=== PATIENT | male | born 1965 | race Caucasian/White ===

== ENCOUNTER 2018-11-26 17:28 | Emergency (ER) | payer MEDICAID ==
[~2018-11-26] VITALS: Ht 177.8 cm; Wt 74.8 kg
[2018-11-26 17:42] VITALS: BP 142/98
== END 2018-11-26 18:19 | disposition home or self-care (01) ==
LOC: ER 17:32
DX: K02.9 Dental caries, unspecified (principal); F17.210 Nicotine dependence, cigarettes, uncomplicated; F12.90 Cannabis use, unspecified, uncomplicated; Z88.5 Allergy status to narcotic agent; Z88.0 Allergy status to penicillin

== ENCOUNTER 2020-12-22 15:57 | Emergency (ER) | payer MEDICAID, OTHER ==
[~2020-12-22] VITALS: Ht 177.8 cm; Wt 86.2 kg
[2020-12-22 16:31] VITALS: BP 132/84
[2020-12-22] MEDS ORDERED: IBUPROFEN 800 MG TAB PO ONE (16:45)
== END 2020-12-22 17:18 | disposition home or self-care (01) ==
LOC: ER 15:57
DX: S52.502A Unspecified fracture of the lower end of left radius, initial encounter for closed fracture (principal); F17.210 Nicotine dependence, cigarettes, uncomplicated; Z88.0 Allergy status to penicillin; Z88.5 Allergy status to narcotic agent; W18.39XA Other fall on same level, initial encounter; Y93.89 Activity, other specified; Y92.89 Other specified places as the place of occurrence of the external cause; Y99.8 Other external cause status
CPT/HCPCS: 29125; 73110

== ENCOUNTER 2022-01-25 10:01 | Emergency (ER) | payer OTHER ==
[~2022-01-25] VITALS: Ht 177.8 cm; Wt 92.1 kg
[2022-01-25] MEDS ORDERED: POLYSOL15 OP ×2 (11:01→11:08)
[2022-01-25 11:21] VITALS: BP 133/100
== END 2022-01-25 11:23 | disposition home or self-care (01) ==
LOC: ER 10:03
DX: S05.02XA Injury of conjunctiva and corneal abrasion without foreign body, left eye, initial encounter (principal); I10 Essential (primary) hypertension; F17.210 Nicotine dependence, cigarettes, uncomplicated; Z79.899 Other long term (current) drug therapy; Z88.0 Allergy status to penicillin; Z88.5 Allergy status to narcotic agent; W22.8XXA Striking against or struck by other objects, initial encounter; Y93.89 Activity, other specified; Y92.89 Other specified places as the place of occurrence of the external cause; Y99.8 Other external cause status